=== PATIENT | female | born 1930 | race Caucasian/White ===

== ENCOUNTER → 2017-01-02 | Outpatient (CLI) | payer MEDICARE, OTHER ==
[~2017-01-02] MED LIST: AMLO10TA2 PO; FAMO-79 PO; HYDR-3138 PO; LEVO750T26 PO; LOSA50TA6; METO25TA35 PO; METR500T PO; ONDA4TAB10 PO
== END | disposition home or self-care (01) ==
LOC: CFH 10:44
PROVIDERS: ATTEND Internal Medicine Hematology & Oncology
DX: C34.90 Malignant neoplasm of unspecified part of unspecified bronchus or lung (principal); I70.0 Atherosclerosis of aorta; J84.10 Pulmonary fibrosis, unspecified; J98.4 Other disorders of lung; J47.9 Bronchiectasis, uncomplicated; J90 Pleural effusion, not elsewhere classified; R91.8 Other nonspecific abnormal finding of lung field; I51.7 Cardiomegaly; I31.3 Pericardial effusion (noninflammatory); I25.10 Atherosclerotic heart disease of native coronary artery without angina pectoris; R18.8 Other ascites; M85.88 Other specified disorders of bone density and structure, other site; M48.54XA Collapsed vertebra, not elsewhere classified, thoracic region, initial encounter for fracture; M95.4 Acquired deformity of chest and rib; Z90.49 Acquired absence of other specified parts of digestive tract
CPT/HCPCS: 71250

== ENCOUNTER → 2017-01-19 | Outpatient (CLI) | payer MEDICARE, OTHER | END | disposition home or self-care (01) | LOC: PETCFH 11:29 | PROVIDERS: ATTEND Internal Medicine Hematology & Oncology | DX: C34.90 Malignant neoplasm of unspecified part of unspecified bronchus or lung (principal); J90 Pleural effusion, not elsewhere classified | CPT/HCPCS: 78815; A9552 ==

== ENCOUNTER 2017-03-17 09:51 | Emergency (ER) | payer MEDICARE, OTHER ==
[~2017-03-17] VITALS: Ht 162.6 cm; Wt 65.0 kg
[~2017-03-17 09:51] MED LIST changes: -HYDR-3138 PO; +HYDR-3237 PO
[2017-03-17] MEDS ORDERED: SODIUM CHLORIDE 0.9% 1,000 ML IV ONE (10:14)
[2017-03-17] MEDS ORDERED: methylPREDNISolone SOD SUCC 125 MG/2 ML IVPush ONE (10:30)
[2017-03-17] MEDS ORDERED: DIPHENHYDRAMINE 50 MG/ML, 1ML IVPush ONE (10:30)
[2017-03-17] MEDS ORDERED: SODIUM CHLORIDE FLUSH 10ML SYR IVF ONE (10:30)
[2017-03-17 10:53] LABS: HEMATOCRIT 40.7 % (34.6-47.8); HEMOGLOBIN 13.5 g/dL (11.7-16.4); WHITE BLOOD COUNT 6.7 x10^3/uL (3.4-10)
[2017-03-17] MEDS ORDERED: DIPHENHYDRAMINE 50 MG/ML, 1ML ONE (11:00)
[2017-03-17] MEDS ORDERED: methylPREDNISolone SOD SUCC 125 MG/2 ML ONE (11:00)
[2017-03-17 11:06] LABS: BLOOD UREA NITROGEN 9 mg/dL (7-18)
[2017-03-17 11:09] LABS: ASPARTATE AMINO TRANSFERASE 16 U/L (15-37)
[2017-03-17] MEDS ORDERED: OMNIPAQUE 350 MG/ML, 100ML BOTTLE ONE (11:54)
[2017-03-17 14:52] VITALS: BP 136/68
== END 2017-03-17 14:56 | disposition home or self-care (01) ==
LOC: ED 12:19
DX: N30.90 Cystitis, unspecified without hematuria (principal); I10 Essential (primary) hypertension; F17.200 Nicotine dependence, unspecified, uncomplicated; Z90.49 Acquired absence of other specified parts of digestive tract; Z85.118 Personal history of other malignant neoplasm of bronchus and lung; Z91.041 Radiographic dye allergy status; Z88.0 Allergy status to penicillin
CPT/HCPCS: 36415; 74177; 80053; 81001; 82550; 83690; 85025; 87086; 93005; 96361; 96374; 96375; 99285; J1200; J2930; J7030; Q9967

== ENCOUNTER → 2017-04-02 | Outpatient (CLI) | payer MEDICARE, OTHER | END | disposition home or self-care (01) | LOC: CFH 15:33 | PROVIDERS: ATTEND Internal Medicine Hematology & Oncology | DX: M79.89 Other specified soft tissue disorders (principal) ==

== ENCOUNTER → 2017-04-29 | Outpatient (CLI) | payer MEDICARE, OTHER ==
[~2017-04-29] MED LIST changes: +OMNIPAQUE 350 MG/ML, 100ML BOTTLE ONE
== END | disposition home or self-care (01) ==
LOC: RAD 13:34
PROVIDERS: ATTEND Internal Medicine Hematology & Oncology
DX: R18.8 Other ascites (principal); C34.90 Malignant neoplasm of unspecified part of unspecified bronchus or lung; R91.8 Other nonspecific abnormal finding of lung field; J92.9 Pleural plaque without asbestos; M48.54XA Collapsed vertebra, not elsewhere classified, thoracic region, initial encounter for fracture; K22.8 Other specified diseases of esophagus; M51.37 Other intervertebral disc degeneration, lumbosacral region
CPT/HCPCS: 71260; 74177; Q9967

== ENCOUNTER 2017-05-08 09:00 | Inpatient (IN) | payer MEDICARE, OTHER ==
[~2017-05-08] VITALS: Ht 162.6 cm; Wt 74.5 kg
[~2017-05-08 09:00] MED LIST changes: -OMNIPAQUE 350 MG/ML, 100ML BOTTLE ONE
[2017-05-08] MEDS ORDERED: PANT20TA3 PO (09:16)
[2017-05-08] MEDS ORDERED: NIVO40VI IV (09:28)
[2017-05-08] MEDS ORDERED: SODIUM CHLORIDE 0.9% 1,000ML IVBOLUS ONE (09:30)
[2017-05-08] MEDS ORDERED: MORPHINE SULFATE 4 MG/ML, 1ML IVPush PRN (09:30)
[2017-05-08] MEDS ORDERED: SODIUM CHLORIDE FLUSH 10ML SYR IVF ONE (09:30)
[2017-05-08] MEDS ORDERED: ONDANSETRON 2MG/ML, 2ML IVPush ONE (09:30)
[2017-05-08 10:12] LABS: HEMATOCRIT 41.4 % (34.6-47.8); HEMOGLOBIN 13.5 g/dL (11.7-16.4); WHITE BLOOD COUNT 10.5 x10^3/uL (3.4-10)
[2017-05-08 10:24] LABS: BLOOD UREA NITROGEN 9 mg/dL (7-18)
[2017-05-08 11:02] LABS: IS PT STATUS REG ER OR PRE ER? YES
[2017-05-08] MEDS ORDERED: morphine SULFATE 10 MG/ML, 1ML ONE ×2 (11:23→11:27)
[2017-05-08] MEDS ORDERED: ONDANSETRON 2MG/ML, 2ML ONE ×3 (11:23→23:41)
[2017-05-08] MEDS ORDERED: morphine SULFATE 10 MG/ML, 1ML IVPush PRN (12:00)
[2017-05-08] MEDS ORDERED: BISACODYL 10 MG SUPP PR PRN (12:00)
[2017-05-08] MEDS ORDERED: TRAZODONE 50MG TABLET PO PRN (12:00)
[2017-05-08] MEDS ORDERED: LABETALOL 5MG/ML, 20ML IVPush PRN (12:00)
[2017-05-08] MEDS ORDERED: ENOXAPARIN 40 MG/0.4 ML SQ SCH (12:00)
[2017-05-08] MEDS ORDERED: ONDANSETRON 2MG/ML, 2ML IVPush PRN ×2 (12:00→23:00)
[2017-05-08] MEDS ORDERED: hydrALAzine 20 MG/ML, 1ML IVPush PRN (12:00)
[2017-05-08 12:41] LABS: IS PT STATUS REG ER OR PRE ER? YES
[2017-05-08 13:16] LABS: C-REACTIVE PROTEIN, QUANT 3.3 mg/dL (0.02-0.49)
[2017-05-08 13:45] VITALS: BP 116/73
[2017-05-08] MEDS: NS + 20MEQ KCL 1,000 ML IV SCH (14:52)
[2017-05-08] MEDS: LEVOFLOXACIN/PMX 500MG/100ML 100 ML IV SCH (14:52)
[2017-05-08 15:25] LABS: PATH.CAST-FLAG NOT PRESENT; SPERM-FLAG NOT PRESENT; SRC-FLAG NOT PRESENT; XTAL-FLAG NOT PRESENT; YLC-FLAG NOT PRESENT
[2017-05-08 20:24] VITALS: BP 108/67
[2017-05-08] MEDS ORDERED: CEFAZOLIN 1,000 MG ONE (22:24)
[2017-05-08] MEDS ORDERED: ROCURONIUM 10 MG/ML ONE ×2 (22:24→22:28)
[2017-05-08] MEDS ORDERED: PROPOFOL 10 MG/ML, 20ML ONE (22:24)
[2017-05-08] MEDS ORDERED: FENTANYL PF 250 MCG/5ML ONE (22:24)
[2017-05-08] MEDS ORDERED: ACETAMINOPHEN 325 MG TABLET PO PRN (23:00)
[2017-05-08] MEDS ORDERED: PROMETHAZINE 25 MG/ML, 1ML IV PRN (23:00)
[2017-05-08] MEDS ORDERED: OXYcodone 5 MG/5 ML ORAL.SOL UDC PO PRN (23:00)
[2017-05-08] MEDS ORDERED: hydrALAzine 20 MG/ML, 1ML IV PRN (23:00)
[2017-05-08] MEDS ORDERED: ALBUTEROL SULFATE 2.5 MG/3 ML NPPB PRN (23:00)
[2017-05-08] MEDS ORDERED: METOPROLOL 1 MG/ML, 5ML IV PRN (23:00)
[2017-05-08] MEDS ORDERED: EPHEDRINE 50 MG/ML, 1ML IVPush PRN (23:00)
[2017-05-08] MEDS ORDERED: LABETALOL 5MG/ML, 20ML IV PRN (23:00)
[2017-05-08] MEDS ORDERED: HYDROmorphone 1 MG/ML, 1ML IV PRN (23:00)
[2017-05-08] MEDS ORDERED: DEXAMETHASONE 4 MG/ML, 1ML ONE (23:41)
[2017-05-08] MEDS ORDERED: TRANEXAMIC ACID 100 MG/ML, 10ML ONE (23:56)
[2017-05-09] MEDS ORDERED: NEOSTIGMINE 1 MG/ML, 10ML ONE ×2 (00:22)
[2017-05-09] MEDS ORDERED: GLYCOPYRROLATE 0.4 MG/2 ML, 2ML ONE (00:23)
[2017-05-09] MEDS ORDERED: OXYcodone 5 MG/5 ML ORAL.SOL UDC ONE (01:19)
[2017-05-09] MEDS ORDERED: ACETAMINOPHEN 650 MG/20.3 ML UDC ONE (01:19)
[2017-05-09] MEDS ORDERED: FENTANYL PF 100 MCG/2ML ONE (01:19)
[2017-05-09] MEDS: FENTANYL PF 100 MCG/2ML IV PRN ×2 (01:21→01:27)
[2017-05-09 02:38] VITALS: BP 82/55
[2017-05-09 03:23] VITALS: BP 88/56
[2017-05-09 04:34] VITALS: BP 94/60
[2017-05-09] MEDS: NS + 20MEQ KCL 1,000 ML IV SCH ×2 (05:00→15:00)
[2017-05-09 06:01] LABS: HEMOGLOBIN 11.1 g/dL (11.7-16.4); WHITE BLOOD COUNT 14.5 x10^3/uL (3.4-10)
[2017-05-09 06:04] LABS: BLOOD UREA NITROGEN 12 mg/dL (7-18)
[2017-05-09 07:30] VITALS: BP 93/58
[2017-05-09] MEDS: CEFAZOLIN PMX 1GM/50ML 50 ML IV SCH ×2 (07:51→16:17)
[2017-05-09] MEDS: ENOXAPARIN 40 MG/0.4 ML SQ SCH (07:51)
[2017-05-09] MEDS: PANTOPRAZOLE 40 MG IV IVPush SCH (07:51)
[2017-05-09] MEDS: HYDROcodone/APAP 5/325 TABLET PO PRN ×2 (07:52→22:26)
[2017-05-09] MEDS: LEVOFLOXACIN/PMX 500MG/100ML 100 ML IV SCH (14:00)
[2017-05-09 14:30] VITALS: BP 96/58
[2017-05-09] MEDS ORDERED: NS + 20MEQ KCL 1,000 ML IV SCH (16:00)
[2017-05-09 19:18] LABS: BLOOD UREA NITROGEN 16 mg/dL (7-18)
[2017-05-09 19:50] VITALS: BP 94/59
[2017-05-10] MEDS: CEFAZOLIN PMX 1GM/50ML 50 ML IV SCH (00:52)
[2017-05-10 00:53] VITALS: BP 104/65
[2017-05-10] MEDS: NS + 20MEQ KCL 1,000 ML IV SCH ×3 (00:53→15:20)
[2017-05-10 05:41] LABS: HEMATOCRIT 28.9 % (34.6-47.8); HEMOGLOBIN 9.5 g/dL (11.7-16.4); WHITE BLOOD COUNT 9.3 x10^3/uL (3.4-10)
[2017-05-10 05:50] LABS: BLOOD UREA NITROGEN 16 mg/dL (7-18)
[2017-05-10] MEDS: ENOXAPARIN 40 MG/0.4 ML SQ SCH (09:06)
[2017-05-10] MEDS: PANTOPRAZOLE 40 MG IV IVPush SCH (09:06)
[2017-05-10 09:07] VITALS: BP 91/50
[2017-05-10] MEDS: HYDROcodone/APAP 5/325 TABLET PO PRN ×3 (09:53→20:24)
[2017-05-10 13:43] VITALS: BP 96/61
[2017-05-10] MEDS ORDERED: NS + 20MEQ KCL 1,000 ML IV SCH ×2 (14:30→16:00)
[2017-05-10] MEDS: LEVOFLOXACIN/PMX 500MG/100ML 100 ML IV SCH (15:35)
[2017-05-10 20:09] VITALS: BP 109/68
[2017-05-11 04:26] VITALS: BP 112/70
[2017-05-11] MEDS: HYDROcodone/APAP 5/325 TABLET PO PRN ×3 (04:38→14:41)
[2017-05-11 05:38] LABS: HEMATOCRIT 29.3 % (34.6-47.8); HEMOGLOBIN 9.7 g/dL (11.7-16.4)
[2017-05-11 05:54] LABS: BLOOD UREA NITROGEN 12 mg/dL (7-18)
[2017-05-11 09:10] VITALS: BP 115/88
[2017-05-11] MEDS: PANTOPRAZOLE 40 MG IV IVPush SCH (09:12)
[2017-05-11] MEDS: ENOXAPARIN 40 MG/0.4 ML SQ SCH (09:13)
[2017-05-11] MEDS ORDERED: BISA10SU65 PR (10:29)
[2017-05-11] MEDS ORDERED: HYDR-3240 PO (10:30)
[2017-05-11] MEDS ORDERED: LEVO500T47 PO (10:30)
[2017-05-11] MEDS ORDERED: FUROSEMIDE 40 MG/4 ML IV ONE (10:30)
[2017-05-11] MEDS ORDERED: ENOX40SY4 SQ (10:30)
[2017-05-11] MEDS ORDERED: TRAZ50TA18 PO (10:30)
[2017-05-11] MEDS: LEVOFLOXACIN/PMX 500MG/100ML 100 ML IV SCH (14:00)
== END 2017-05-11 16:05 | DRG 956 ==
LOC: ED 09:09 → EDIP 10:40 → 5SO 13:16
PROVIDERS: ADMIT Internal Medicine; ATTEND Internal Medicine
PROC: 0SRS0J9 Replacement of Left Hip Joint, Femoral Surface with Synthetic Substitute, Cemented, Open Approach (ICD-10-PCS; principal; 2017-05-08 21:30)
DX: S72.032A Displaced midcervical fracture of left femur, initial encounter for closed fracture (principal); S32.9XXA Fracture of unspecified parts of lumbosacral spine and pelvis, initial encounter for closed fracture; J18.9 Pneumonia, unspecified organism; J90 Pleural effusion, not elsewhere classified; E87.70 Fluid overload, unspecified; Z99.81 Dependence on supplemental oxygen; C34.90 Malignant neoplasm of unspecified part of unspecified bronchus or lung; W01.0XXA Fall on same level from slipping, tripping and stumbling without subsequent striking against object, initial encounter; R33.9 Retention of urine, unspecified; I10 Essential (primary) hypertension; K21.9 Gastro-esophageal reflux disease without esophagitis; Z90.49 Acquired absence of other specified parts of digestive tract; Z88.0 Allergy status to penicillin; Z91.041 Radiographic dye allergy status; Y93.89 Activity, other specified; Y92.098 Other place in other non-institutional residence as the place of occurrence of the external cause; Y99.8 Other external cause status
CPT/HCPCS: 36415; 51702; 71010; 72170; 80048; 81001; 82040; 84439; 84443; 84484; 85025; 85610; 85651; 85730; 86140; 87040; 87086; 93005; 96374; 96375; J0690; J1100; J1650; J1940; J1956; J2405; J2704; J2710; J3010; J3480; C9113; J7030

== ENCOUNTER 2017-05-29 11:47 | Inpatient (IN) | payer MEDICARE, OTHER ==
[~2017-05-29] VITALS: Ht 162.6 cm; Wt 70.4 kg
[~2017-05-29 11:47] MED LIST changes: +BISA10SU65 PR; +ENOX40SY4 SQ; +HYDR-3240 PO; +LEVO500T47 PO; +NIVO40VI IV; +PANT20TA3 PO; +TRAZ50TA18 PO
[2017-05-29] MEDS ORDERED: SODIUM CHLORIDE 0.9% 1,000 ML IV ONE (11:52)
[2017-05-29] MEDS ORDERED: SODIUM CHLORIDE 0.9% 1,000ML IVBOLUS ONE (12:00)
[2017-05-29 12:30] LABS: HEMATOCRIT 34.7 % (34.6-47.8); HEMOGLOBIN 11.2 g/dL (11.7-16.4); WHITE BLOOD COUNT 8.7 x10^3/uL (3.4-10)
[2017-05-29] MEDS ORDERED: DIPHENHYDRAMINE 50 MG/ML, 1ML ONE (12:30)
[2017-05-29] MEDS ORDERED: DIPHENHYDRAMINE 50 MG/ML, 1ML IVPush ONE (12:30)
[2017-05-29 12:43] LABS: ASPARTATE AMINO TRANSFERASE 23 U/L (15-37); BLOOD UREA NITROGEN 11 mg/dL (7-18)
[2017-05-29 12:49] LABS: IS PT STATUS REG ER OR PRE ER? YES
[2017-05-29] MEDS ORDERED: OMNIPAQUE 350 MG/ML, 100ML BOTTLE ONE (13:18)
[2017-05-29] MEDS ORDERED: HYDROcodone/APAP 5/325 TABLET PO PRN (15:00)
[2017-05-29] MEDS ORDERED: ENALAPRILAT 1.25 MG/ML, 2ML IVPush PRN (15:00)
[2017-05-29] MEDS ORDERED: ONDANSETRON ODT 4 MG PO PRN (15:00)
[2017-05-29] MEDS ORDERED: TRAZODONE 50MG TABLET PO PRN (15:00)
[2017-05-29] MEDS ORDERED: DOCUSATE 100 MG CAPSULE PO PRN (15:00)
[2017-05-29] MEDS ORDERED: BISACODYL 10 MG SUPP PR PRN (15:00)
[2017-05-29] MEDS ORDERED: ONDANSETRON 2MG/ML, 2ML IVPush PRN (15:00)
[2017-05-29] MEDS: SODIUM CHLORIDE 0.9% 1,000 ML IV SCH ×2 (16:04→20:44)
[2017-05-29 16:10] VITALS: BP 111/62
[2017-05-29] MEDS: ENOXAPARIN 40 MG/0.4 ML SQ SCH (16:40)
[2017-05-29] MEDS: LORazepam 1MG TABLET PO PRN (18:33)
[2017-05-29] MEDS: ACETAMINOPHEN 325 MG TABLET PO PRN (18:49)
[2017-05-29] MEDS: ALBUTEROL/IPRATROPIUM 2.5MG/0.5MG, 3 ML NPPB PRN (18:55)
[2017-05-29 19:12] VITALS: BP 88/49
[2017-05-29 20:09] VITALS: BP 76/40
[2017-05-29] MEDS: CLINDAMYCIN PMX 600MG/50ML 50 ML IV SCH (20:20)
[2017-05-29] MEDS ORDERED: SODIUM CHLORIDE 0.9%, 500ML IVBOLUS ONE (21:00)
[2017-05-29 21:11] VITALS: BP 75/41
[2017-05-29 22:05] VITALS: BP 81/44
[2017-05-29 23:30] VITALS: BP 84/40
[2017-05-30] MEDS ORDERED: methylPREDNISolone SOD SUCC 40 MG/ML IV ONE (00:30)
[2017-05-30 00:58] LABS: HEMATOCRIT 30.3 % (34.6-47.8); HEMOGLOBIN 9.9 g/dL (11.7-16.4); WHITE BLOOD COUNT 8.9 x10^3/uL (3.4-10)
[2017-05-30 01:08] LABS: BLOOD UREA NITROGEN 12 mg/dL (7-18)
[2017-05-30 01:16] VITALS: BP 91/43
[2017-05-30] MEDS: CLINDAMYCIN PMX 600MG/50ML 50 ML IV SCH ×3 (03:27→19:55)
[2017-05-30] MEDS: SODIUM CHLORIDE 0.9% 1,000 ML IV SCH ×3 (03:35→23:55)
[2017-05-30 07:45] VITALS: BP 85/50
[2017-05-30] MEDS: SENNA/DOCUSATE TABLET PO SCH (09:00)
[2017-05-30] MEDS: PANTOPRAZOLE 20MG TABLET PO SCH (09:00)
[2017-05-30 14:15] VITALS: BP 95/60
[2017-05-30] MEDS ORDERED: SODIUM CHLORIDE 0.9% 1,000 ML IV SCH (14:59)
[2017-05-30] MEDS: ENOXAPARIN 40 MG/0.4 ML SQ SCH (15:29)
[2017-05-30 18:51] VITALS: BP 99/55
[2017-05-30 19:41] VITALS: BP 95/54
[2017-05-30] MEDS: ACETAMINOPHEN 325 MG TABLET PO PRN (19:55)
[2017-05-30] MEDS: ALBUTEROL/IPRATROPIUM 2.5MG/0.5MG, 3 ML NPPB PRN (22:27)
[2017-05-31 03:40] VITALS: BP 89/49
[2017-05-31 03:42] VITALS: BP 92/48
[2017-05-31] MEDS: CLINDAMYCIN PMX 600MG/50ML 50 ML IV SCH (03:43)
[2017-05-31 05:00] LABS: HEMATOCRIT 28.7 % (34.6-47.8); HEMOGLOBIN 9.4 g/dL (11.7-16.4); WHITE BLOOD COUNT 7.6 x10^3/uL (3.4-10)
[2017-05-31 05:11] LABS: BLOOD UREA NITROGEN 20 mg/dL (7-18)
[2017-05-31 05:58] VITALS: BP 104/58
[2017-05-31 06:51] VITALS: BP 99/62
[2017-05-31] MEDS: PANTOPRAZOLE 20MG TABLET PO SCH (09:15)
[2017-05-31] MEDS: SENNA/DOCUSATE TABLET PO SCH (09:15)
[2017-05-31] MEDS ORDERED: POTASSIUM CHLORIDE 20 MEQ TAB.ER.PRT PO ONE (10:00)
[2017-05-31] MEDS: LEVOFLOXACIN 750 MG TABLET PO SCH (11:16)
[2017-05-31 12:17] VITALS: BP 128/72
[2017-05-31] MEDS: ENOXAPARIN 40 MG/0.4 ML SQ SCH (15:47)
[2017-05-31] MEDS: ACETAMINOPHEN 325 MG TABLET PO PRN (16:04)
[2017-05-31 19:30] VITALS: BP 117/74
[2017-05-31] MEDS ORDERED: BISACODYL 10 MG SUPP PR PRN (21:00)
[2017-05-31] MEDS ORDERED: ENALAPRILAT 1.25 MG/ML, 2ML IVPush PRN (21:00)
[2017-05-31] MEDS ORDERED: HYDROcodone/APAP 5/325 TABLET PO PRN (21:00)
[2017-05-31] MEDS ORDERED: ONDANSETRON 2MG/ML, 2ML IVPush PRN (21:00)
[2017-05-31] MEDS ORDERED: ONDANSETRON ODT 4 MG PO PRN (21:00)
[2017-05-31] MEDS ORDERED: DOCUSATE 100 MG CAPSULE PO PRN (21:00)
[2017-05-31] MEDS: ALBUTEROL/IPRATROPIUM 2.5MG/0.5MG, 3 ML NPPB PRN (21:08)
[2017-05-31] MEDS: LORazepam 1MG TABLET PO PRN (21:46)
[2017-06-01 03:52] VITALS: BP 106/65
[2017-06-01 06:46] VITALS: BP 107/63
[2017-06-01] MEDS: SENNA/DOCUSATE TABLET PO SCH (09:00)
[2017-06-01] MEDS: POTASSIUM CHLORIDE 20 MEQ TAB.ER.PRT PO SCH ×2 (09:03→17:40)
[2017-06-01] MEDS: PANTOPRAZOLE 20MG TABLET PO SCH (09:03)
[2017-06-01] MEDS: LEVOFLOXACIN 750 MG TABLET PO SCH (09:04)
[2017-06-01] MEDS: ALBUTEROL/IPRATROPIUM 2.5MG/0.5MG, 3 ML NPPB PRN (09:40)
[2017-06-01] MEDS ORDERED: FUROSEMIDE 20 MG/2 ML IV SCH (12:30)
[2017-06-01] MEDS: ALBUTEROL/IPRATROPIUM 2.5MG/0.5MG, 3 ML NPPB SCH ×3 (12:50→21:00)
[2017-06-01] MEDS: ACETAMINOPHEN 325 MG TABLET PO PRN (13:14)
[2017-06-01 13:35] VITALS: BP 115/62
[2017-06-01] MEDS: ALBUMIN HUMAN 25% 50 ML IV SCH ×2 (14:49→23:09)
[2017-06-01] MEDS: ENOXAPARIN 40 MG/0.4 ML SQ SCH (15:55)
[2017-06-01] MEDS ORDERED: DIPHENHYDRAMINE 50 MG/ML, 1ML ONE (16:05)
[2017-06-01] MEDS ORDERED: DIPHENHYDRAMINE 50 MG/ML, 1ML IVPush ONE (16:30)
[2017-06-01] MEDS: FUROSEMIDE 20 MG/2 ML IV SCH (16:30)
[2017-06-01 19:56] VITALS: BP 118/65
[2017-06-01] MEDS: LORazepam 1MG TABLET PO PRN (21:26)
[2017-06-02 04:38] LABS: HEMATOCRIT 30.9 % (34.6-47.8); HEMOGLOBIN 10.1 g/dL (11.7-16.4); WHITE BLOOD COUNT 5.4 x10^3/uL (3.4-10)
[2017-06-02 04:49] LABS: BLOOD UREA NITROGEN 9 mg/dL (7-18)
[2017-06-02] MEDS: ALBUTEROL/IPRATROPIUM 2.5MG/0.5MG, 3 ML NPPB SCH ×4 (06:15→19:40)
[2017-06-02] MEDS: PANTOPRAZOLE 20MG TABLET PO SCH (08:56)
[2017-06-02] MEDS: POTASSIUM CHLORIDE 20 MEQ TAB.ER.PRT PO SCH ×2 (08:56→17:12)
[2017-06-02] MEDS: SENNA/DOCUSATE TABLET PO SCH (08:56)
[2017-06-02] MEDS: ALBUMIN HUMAN 25% 50 ML IV SCH ×2 (08:57→20:58)
[2017-06-02] MEDS: AZTREONAM 2 GM in DEXTROSE 5% 100 ML IV SCH ×3 (10:11→23:56)
[2017-06-02] MEDS: FUROSEMIDE 20 MG/2 ML IV SCH ×2 (10:11→21:30)
[2017-06-02] MEDS ORDERED: ALBUMIN HUMAN 25% 100 ML IV ONE (12:00)
[2017-06-02] MEDS ORDERED: FUROSEMIDE 20 MG/2 ML IV ONE (13:00)
[2017-06-02] MEDS: LINEZOLID PMX 600MG/300ML 300 ML IV SCH (13:36)
[2017-06-02] MEDS: ACETAMINOPHEN 325 MG TABLET PO PRN (15:32)
[2017-06-02] MEDS: ENOXAPARIN 40 MG/0.4 ML SQ SCH (15:35)
[2017-06-02] MEDS ORDERED: POTASSIUM CHLORIDE 20 MEQ TAB.ER.PRT PO ONE (20:30)
[2017-06-02] MEDS: LORazepam 1MG TABLET PO PRN (22:29)
[2017-06-03] MEDS: LINEZOLID PMX 600MG/300ML 300 ML IV SCH ×2 (00:38→12:58)
[2017-06-03 05:06] LABS: BLOOD UREA NITROGEN 8 mg/dL (7-18)
[2017-06-03] MEDS: ALBUTEROL/IPRATROPIUM 2.5MG/0.5MG, 3 ML NPPB SCH ×4 (07:00→21:36)
[2017-06-03] MEDS: SENNA/DOCUSATE TABLET PO SCH (09:00)
[2017-06-03] MEDS: POTASSIUM CHLORIDE 20 MEQ TAB.ER.PRT PO SCH ×2 (09:36→16:08)
[2017-06-03] MEDS: ACETAMINOPHEN 325 MG TABLET PO PRN ×2 (09:36→21:24)
[2017-06-03] MEDS: PANTOPRAZOLE 20MG TABLET PO SCH (09:37)
[2017-06-03] MEDS: ALBUMIN HUMAN 25% 50 ML IV SCH ×2 (10:45→21:20)
[2017-06-03] MEDS: FUROSEMIDE 20 MG/2 ML IV SCH ×2 (11:49→22:59)
[2017-06-03] MEDS: AZTREONAM 2 GM in DEXTROSE 5% 100 ML IV SCH ×2 (11:49→19:36)
[2017-06-03] MEDS: ENOXAPARIN 40 MG/0.4 ML SQ SCH (16:06)
[2017-06-03] MEDS: LORazepam 1MG TABLET PO PRN (20:08)
[2017-06-04] MEDS: LINEZOLID PMX 600MG/300ML 300 ML IV SCH ×2 (01:28→12:36)
[2017-06-04] MEDS: AZTREONAM 2 GM in DEXTROSE 5% 100 ML IV SCH ×3 (04:00→20:23)
[2017-06-04] MEDS: LORazepam 1MG TABLET PO PRN (05:27)
[2017-06-04] MEDS ORDERED: ALBUTEROL/IPRATROPIUM 2.5MG/0.5MG, 3 ML NPPB PRN (05:30)
[2017-06-04] MEDS: ALBUTEROL/IPRATROPIUM 2.5MG/0.5MG, 3 ML NPPB SCH ×5 (06:00→23:00)
[2017-06-04 07:58] LABS: HEMATOCRIT 30.4 % (34.6-47.8); HEMOGLOBIN 9.8 g/dL (11.7-16.4); WHITE BLOOD COUNT 8.7 x10^3/uL (3.4-10)
[2017-06-04 08:11] LABS: BLOOD UREA NITROGEN 9 mg/dL (7-18)
[2017-06-04 08:14] LABS: ASPARTATE AMINO TRANSFERASE 16 U/L (15-37)
[2017-06-04] MEDS: SENNA/DOCUSATE TABLET PO SCH (09:00)
[2017-06-04] MEDS ORDERED: MAGNESIUM SULFATE PMX 4GM/100M 100 ML IV ONE (09:30)
[2017-06-04] MEDS ORDERED: SODIUM BICARBONATE 4.2%, 5ML NPPB SCH (10:30)
[2017-06-04] MEDS: PANTOPRAZOLE 20MG TABLET PO SCH (10:57)
[2017-06-04] MEDS: ALBUMIN HUMAN 25% 50 ML IV SCH ×2 (11:06→21:28)
[2017-06-04] MEDS: FUROSEMIDE 20 MG/2 ML IV SCH ×2 (11:24→22:36)
[2017-06-04] MEDS: ACETYLCYSTEINE 20%, 4ML NPPB SCH ×2 (14:53→19:55)
[2017-06-04] MEDS: DRONABINOL 5 MG CAPSULE PO SCH ×2 (15:29→21:29)
[2017-06-04] MEDS: ENOXAPARIN 40 MG/0.4 ML SQ SCH (15:30)
[2017-06-04] MEDS: MICAFUNGIN 100 MG in SODIUM CHLORIDE 0.9% 100 ML IV SCH (17:47)
[2017-06-04] MEDS: POTASSIUM CHLORIDE 20 MEQ TAB.ER.PRT PO SCH (17:47)
[2017-06-04] MEDS ORDERED: ALBUTEROL SULFATE 2.5 MG/3 ML ONE (19:49)
[2017-06-05] MEDS: LINEZOLID PMX 600MG/300ML 300 ML IV SCH ×2 (01:17→13:03)
[2017-06-05] MEDS: ALBUTEROL/IPRATROPIUM 2.5MG/0.5MG, 3 ML NPPB SCH ×6 (02:38→22:06)
[2017-06-05] MEDS: AZTREONAM 2 GM in DEXTROSE 5% 100 ML IV SCH ×3 (04:18→20:16)
[2017-06-05 05:00] LABS: BLOOD UREA NITROGEN 9 mg/dL (7-18)
[2017-06-05] MEDS ORDERED: ALBUTEROL SULFATE 2.5 MG/3 ML NPPB SCH (07:00)
[2017-06-05] MEDS: ACETYLCYSTEINE 20%, 4ML NPPB SCH ×4 (07:15→20:00)
[2017-06-05] MEDS ORDERED: PANTOPROZOLE 40MG TABLET PO SCH (08:00)
[2017-06-05] MEDS: FUROSEMIDE 20 MG/2 ML IV SCH ×2 (08:10→16:14)
[2017-06-05] MEDS: POTASSIUM CHLORIDE 20 MEQ TAB.ER.PRT PO SCH (08:48)
[2017-06-05] MEDS: DRONABINOL 5 MG CAPSULE PO SCH ×2 (08:49→21:19)
[2017-06-05] MEDS: SENNA/DOCUSATE TABLET PO SCH (08:50)
[2017-06-05] MEDS: ALBUMIN HUMAN 25% 50 ML IV SCH ×2 (09:00→21:18)
[2017-06-05] MEDS: FAMOTIDINE 20 MG TABLET PO SCH (11:17)
[2017-06-05] MEDS: ENOXAPARIN 40 MG/0.4 ML SQ SCH (16:12)
[2017-06-05] MEDS: MICAFUNGIN 100 MG in SODIUM CHLORIDE 0.9% 100 ML IV SCH (17:47)
[2017-06-05] MEDS: LORazepam 1MG TABLET PO PRN (23:56)
[2017-06-05] MEDS: ACETAMINOPHEN 325 MG TABLET PO PRN (23:56)
[2017-06-06] MEDS: LINEZOLID PMX 600MG/300ML 300 ML IV SCH ×2 (01:04→13:13)
[2017-06-06] MEDS: LORazepam 2 MG/ML, 1ML IVPush PRN ×2 (01:04→19:29)
[2017-06-06] MEDS: ALBUTEROL/IPRATROPIUM 2.5MG/0.5MG, 3 ML NPPB SCH ×6 (01:46→22:00)
[2017-06-06] MEDS: AZTREONAM 2 GM in DEXTROSE 5% 100 ML IV SCH ×3 (04:30→19:30)
[2017-06-06 04:44] LABS: ABG COLLECTION SITE RIGHT BRACHIAL
[2017-06-06 05:07] LABS: HEMATOCRIT 27.6 % (34.6-47.8); HEMOGLOBIN 8.9 g/dL (11.7-16.4); WHITE BLOOD COUNT 6.8 x10^3/uL (3.4-10)
[2017-06-06 05:25] LABS: BLOOD UREA NITROGEN 12 mg/dL (7-18)
[2017-06-06 05:30] LABS: ASPARTATE AMINO TRANSFERASE 17 U/L (15-37)
[2017-06-06] MEDS: SENNA/DOCUSATE TABLET PO SCH (09:00)
[2017-06-06] MEDS: DRONABINOL 5 MG CAPSULE PO SCH ×2 (09:00→21:13)
[2017-06-06] MEDS: ALBUMIN HUMAN 25% 50 ML IV SCH ×2 (09:52→21:13)
[2017-06-06] MEDS: FAMOTIDINE 20 MG TABLET PO SCH (11:49)
[2017-06-06] MEDS: FUROSEMIDE 20 MG/2 ML IV SCH ×2 (12:04→21:44)
[2017-06-06] MEDS: ENOXAPARIN 40 MG/0.4 ML SQ SCH (16:57)
[2017-06-06] MEDS: MICAFUNGIN 100 MG in SODIUM CHLORIDE 0.9% 100 ML IV SCH (16:58)
[2017-06-07] MEDS: LINEZOLID PMX 600MG/300ML 300 ML IV SCH ×2 (01:08→12:45)
[2017-06-07] MEDS: ALBUTEROL/IPRATROPIUM 2.5MG/0.5MG, 3 ML NPPB SCH ×6 (03:00→23:03)
[2017-06-07] MEDS: LORazepam 2 MG/ML, 1ML IVPush PRN ×2 (03:51→20:02)
[2017-06-07] MEDS ORDERED: FILTER 0.22 MICRON IV PRN (05:00)
[2017-06-07] MEDS ORDERED: AMIODARONE 150 MG in DEXTROSE 5% 100 ML IV ONE (05:00)
[2017-06-07] MEDS: AMIODARONE 900 MG in DEXTROSE 5% 482 ML IV PRN (05:04)
[2017-06-07] MEDS: AZTREONAM 2 GM in DEXTROSE 5% 100 ML IV SCH ×3 (05:14→20:06)
[2017-06-07 06:32] LABS: ABG COLLECTION SITE RIGHT RADIAL; COLLATERAL CIRCULATION TESTING NORMAL
[2017-06-07 06:45] LABS: ASPARTATE AMINO TRANSFERASE 18 U/L (15-37); BLOOD UREA NITROGEN 18 mg/dL (7-18)
[2017-06-07 07:06] LABS: HEMATOCRIT 28.9 % (34.6-47.8); HEMOGLOBIN 9.4 g/dL (11.7-16.4); WHITE BLOOD COUNT 7.8 x10^3/uL (3.4-10)
[2017-06-07] MEDS: SENNA/DOCUSATE TABLET PO SCH (09:00)
[2017-06-07] MEDS: DRONABINOL 5 MG CAPSULE PO SCH ×2 (09:00→21:00)
[2017-06-07] MEDS: FUROSEMIDE 40 MG/4 ML IV SCH ×2 (09:46→22:18)
[2017-06-07] MEDS: ALBUMIN HUMAN 25% 50 ML IV SCH ×2 (09:54→20:55)
[2017-06-07] MEDS: FAMOTIDINE 20 MG/2 ML IV SCH (11:14)
[2017-06-07] MEDS: ENOXAPARIN 40 MG/0.4 ML SQ SCH (15:36)
[2017-06-07] MEDS: MICAFUNGIN 100 MG in SODIUM CHLORIDE 0.9% 100 ML IV SCH (17:42)
[2017-06-08] MEDS: LINEZOLID PMX 600MG/300ML 300 ML IV SCH ×2 (00:57→14:24)
[2017-06-08] MEDS: ALBUTEROL/IPRATROPIUM 2.5MG/0.5MG, 3 ML NPPB SCH ×5 (02:40→22:55)
[2017-06-08] MEDS: AMIODARONE 900 MG in DEXTROSE 5% 482 ML IV PRN (02:52)
[2017-06-08] MEDS: AZTREONAM 2 GM in DEXTROSE 5% 100 ML IV SCH ×3 (04:10→19:42)
[2017-06-08 04:43] LABS: HEMATOCRIT 28.6 % (34.6-47.8); HEMOGLOBIN 9.4 g/dL (11.7-16.4); WHITE BLOOD COUNT 8.2 x10^3/uL (3.4-10)
[2017-06-08 04:56] LABS: ASPARTATE AMINO TRANSFERASE 17 U/L (15-37); BLOOD UREA NITROGEN 19 mg/dL (7-18)
[2017-06-08] MEDS ORDERED: POTASSIUM CHLORIDE 40 MEQ in SODIUM CHLORIDE 0.9% 500 ML IV ONE (06:30)
[2017-06-08] MEDS: SENNA/DOCUSATE TABLET PO SCH (08:25)
[2017-06-08] MEDS: DRONABINOL 5 MG CAPSULE PO SCH ×2 (09:00→20:55)
[2017-06-08] MEDS: ALBUMIN HUMAN 25% 50 ML IV SCH ×2 (09:22→22:44)
[2017-06-08] MEDS: FAMOTIDINE 20 MG/2 ML IV SCH (11:22)
[2017-06-08] MEDS: FUROSEMIDE 40 MG/4 ML IV SCH ×2 (11:23→23:25)
[2017-06-08] MEDS: LORazepam 2 MG/ML, 1ML IVPush PRN ×3 (11:23→20:06)
[2017-06-08] MEDS: ENOXAPARIN 40 MG/0.4 ML SQ SCH (15:15)
[2017-06-08] MEDS: MICAFUNGIN 100 MG in SODIUM CHLORIDE 0.9% 100 ML IV SCH (17:44)
[2017-06-09] MEDS: LORazepam 2 MG/ML, 1ML IVPush PRN ×5 (00:18→19:56)
[2017-06-09] MEDS: LINEZOLID PMX 600MG/300ML 300 ML IV SCH ×2 (01:05→12:29)
[2017-06-09] MEDS: ALBUTEROL/IPRATROPIUM 2.5MG/0.5MG, 3 ML NPPB SCH ×4 (03:23→13:34)
[2017-06-09] MEDS: AZTREONAM 2 GM in DEXTROSE 5% 100 ML IV SCH ×3 (03:57→19:59)
[2017-06-09 04:21] LABS: HEMATOCRIT 29.7 % (34.6-47.8); HEMOGLOBIN 9.6 g/dL (11.7-16.4); WHITE BLOOD COUNT 9.1 x10^3/uL (3.4-10)
[2017-06-09 04:33] LABS: BLOOD UREA NITROGEN 18 mg/dL (7-18)
[2017-06-09 04:36] LABS: ASPARTATE AMINO TRANSFERASE 16 U/L (15-37)
[2017-06-09] MEDS: AMIODARONE 900 MG in DEXTROSE 5% 482 ML IV PRN (08:23)
[2017-06-09] MEDS: ALBUMIN HUMAN 25% 50 ML IV SCH ×2 (08:23→20:59)
[2017-06-09] MEDS: SENNA/DOCUSATE TABLET PO SCH (08:23)
[2017-06-09] MEDS: DRONABINOL 5 MG CAPSULE PO SCH ×2 (08:23→21:00)
[2017-06-09] MEDS: FUROSEMIDE 40 MG/4 ML IV SCH ×2 (10:15→22:08)
[2017-06-09] MEDS: FAMOTIDINE 20 MG/2 ML IV SCH (10:15)
[2017-06-09] MEDS ORDERED: POTASSIUM CHLORIDE 40 MEQ in SODIUM CHLORIDE 0.9% 500 ML IV ONE (10:30)
[2017-06-09] MEDS ORDERED: TPN PER PHARMACY MC PRN (12:00)
[2017-06-09] MEDS: FENTANYL PF 100 MCG/2ML IVPush PRN ×3 (12:49→22:08)
[2017-06-09] MEDS ORDERED: FILTER, DISP 1.2 MICRON FOR TPN/PVN IV PRN (14:00)
[2017-06-09] MEDS: ENOXAPARIN 40 MG/0.4 ML SQ SCH (14:11)
[2017-06-09] MEDS ORDERED: FAT EMULSIONS IV SCH (17:00)
[2017-06-09] MEDS ORDERED: AMINO ACID 10% IV SCH (17:00)
[2017-06-09] MEDS ORDERED: DEXTROSE 70% IV SCH (17:00)
[2017-06-09] MEDS ORDERED: DEXTROSE 10% 500 ML IV PRN (17:00)
[2017-06-09] MEDS ORDERED: DEXTROSE 50%, 50ML SYRINGE IVPush PRN (17:00)
[2017-06-09] MEDS ORDERED: [UNRECOGNIZED DRUG - OTHER] IV SCH (17:00)
[2017-06-09] MEDS: MICAFUNGIN 100 MG in SODIUM CHLORIDE 0.9% 100 ML IV SCH (18:11)
[2017-06-09] MEDS: INSULIN REGULAR LOW DOSE Q6H X 48HRS SQ-INSULIN SCH (22:25)
[2017-06-10] MEDS: LINEZOLID PMX 600MG/300ML 300 ML IV SCH ×2 (01:05→12:54)
[2017-06-10] MEDS: LORazepam 2 MG/ML, 1ML IVPush PRN ×5 (01:14→22:29)
[2017-06-10] MEDS: INSULIN REGULAR LOW DOSE Q6H X 48HRS SQ-INSULIN SCH ×2 (04:07→08:33)
[2017-06-10] MEDS: AZTREONAM 2 GM in DEXTROSE 5% 100 ML IV SCH ×3 (04:14→19:42)
[2017-06-10 04:28] LABS: HEMATOCRIT 29.9 % (34.6-47.8); HEMOGLOBIN 9.6 g/dL (11.7-16.4); WHITE BLOOD COUNT 10.8 x10^3/uL (3.4-10)
[2017-06-10 04:33] LABS: ASPARTATE AMINO TRANSFERASE 17 U/L (15-37); BLOOD UREA NITROGEN 18 mg/dL (7-18)
[2017-06-10] MEDS: FENTANYL PF 100 MCG/2ML IVPush PRN ×2 (05:19→20:53)
[2017-06-10] MEDS: ALBUTEROL/IPRATROPIUM 2.5MG/0.5MG, 3 ML NPPB SCH ×5 (06:27→22:30)
[2017-06-10] MEDS: ALBUMIN HUMAN 25% 50 ML IV SCH ×2 (07:54→20:29)
[2017-06-10] MEDS: DRONABINOL 5 MG CAPSULE PO SCH ×2 (07:55→20:09)
[2017-06-10] MEDS: SENNA/DOCUSATE TABLET PO SCH (07:55)
[2017-06-10] MEDS: methylPREDNISolone SOD SUCC 125 MG/2 ML IVPush SCH ×3 (08:38→20:29)
[2017-06-10] MEDS: FUROSEMIDE 40 MG/4 ML IV SCH ×2 (08:41→21:56)
[2017-06-10] MEDS: AMIODARONE 900 MG in DEXTROSE 5% 482 ML IV PRN (15:19)
[2017-06-10] MEDS: ENOXAPARIN 40 MG/0.4 ML SQ SCH (15:19)
[2017-06-10] MEDS: INSULIN REGULAR, HUMAN 100 UNITS/ML, 3ML MEDIUM DOSE SS SQ-INSULIN SCH ×2 (15:21→20:38)
[2017-06-10] MEDS: MICAFUNGIN 100 MG in SODIUM CHLORIDE 0.9% 100 ML IV SCH (16:51)
[2017-06-10] MEDS ORDERED: AMINO ACID 10% IV SCH (17:00)
[2017-06-10] MEDS ORDERED: FILTER, DISP 1.2 MICRON FOR TPN/PVN IV PRN (17:00)
[2017-06-10] MEDS ORDERED: DEXTROSE 70% IV SCH (17:00)
[2017-06-10] MEDS ORDERED: [UNRECOGNIZED DRUG - OTHER] IV SCH (17:00)
[2017-06-10] MEDS ORDERED: FAT EMULSIONS IV SCH (17:00)
[2017-06-11] MEDS: FENTANYL PF 100 MCG/2ML IVPush PRN ×4 (00:33→14:12)
[2017-06-11] MEDS: LINEZOLID PMX 600MG/300ML 300 ML IV SCH ×2 (00:33→14:11)
[2017-06-11] MEDS: ALBUTEROL/IPRATROPIUM 2.5MG/0.5MG, 3 ML NPPB SCH ×4 (02:15→14:45)
[2017-06-11] MEDS: LORazepam 2 MG/ML, 1ML IVPush PRN ×4 (02:23→16:41)
[2017-06-11] MEDS: methylPREDNISolone SOD SUCC 125 MG/2 ML IVPush SCH ×3 (02:23→14:47)
[2017-06-11] MEDS: INSULIN REGULAR, HUMAN 100 UNITS/ML, 3ML MEDIUM DOSE SS SQ-INSULIN SCH ×3 (02:29→16:11)
[2017-06-11] MEDS: AZTREONAM 2 GM in DEXTROSE 5% 100 ML IV SCH ×2 (03:57→11:58)
[2017-06-11 05:09] LABS: HEMATOCRIT 28.2 % (34.6-47.8); WHITE BLOOD COUNT 9.1 x10^3/uL (3.4-10)
[2017-06-11 05:20] LABS: BLOOD UREA NITROGEN 24 mg/dL (7-18)
[2017-06-11] MEDS ORDERED: INSULIN REGULAR, HUMAN 100 UNITS/ML, 3ML MEDIUM DOSE SS SQ-INSULIN SCH (09:00)
[2017-06-11] MEDS: DRONABINOL 5 MG CAPSULE PO SCH (09:00)
[2017-06-11] MEDS: SENNA/DOCUSATE TABLET PO SCH (09:00)
[2017-06-11] MEDS: ALBUMIN HUMAN 25% 50 ML IV SCH (09:08)
[2017-06-11] MEDS: FUROSEMIDE 40 MG/4 ML IV SCH (10:13)
[2017-06-11] MEDS: ENOXAPARIN 40 MG/0.4 ML SQ SCH (16:09)
[2017-06-11] MEDS ORDERED: [UNRECOGNIZED DRUG - OTHER] IV SCH ×2 (17:00→18:00)
[2017-06-11] MEDS ORDERED: DEXTROSE 70% IV SCH ×2 (17:00→18:00)
[2017-06-11] MEDS ORDERED: FAT EMULSIONS IV SCH ×2 (17:00→18:00)
[2017-06-11] MEDS ORDERED: AMINO ACID 10% IV SCH ×2 (17:00→18:00)
[2017-06-11] MEDS ORDERED: FILTER, DISP 1.2 MICRON FOR TPN/PVN IV PRN (17:00)
[2017-06-11] MEDS ORDERED: LORazepam INTENSOL 2 MG/ML SL PRN (17:30)
[2017-06-11] MEDS ORDERED: morphine SULFATE 125 MG in SODIUM CHLORIDE 0.9% 237.5 ML IV PRN (18:00)
[2017-06-11] MEDS ORDERED: LORazepam 2 MG/ML, 1ML ONE (18:23)
[2017-06-11] MEDS ORDERED: INSULIN REGULAR LOW DOSE QDAY SQ-INSULIN SCH (21:00)
[2017-06-12] MEDS ORDERED: INSULIN REGULAR, HUMAN 100 UNITS/ML, 3ML MEDIUM DOSE SS SQ-INSULIN SCH (09:00)
== END 2017-06-11 18:45 | disposition expired | DRG 291 ==
LOC: ED 13:23 → EDIP 14:03 → 3NW 15:15 → CCU 06-01 20:21 → CSU 06-03 01:50 → CCU 06-04 16:11
PROVIDERS: ADMIT Hospitalist; ATTEND Hospitalist
PROC: 0T9B70Z Drainage of Bladder with Drainage Device, Via Natural or Artificial Opening (ICD-10-PCS; 2017-06-02)
PROC: 5A09557 Assistance with Respiratory Ventilation, Greater than 96 Consecutive Hours, Continuous Positive Airway Pressure (ICD-10-PCS; principal; 2017-06-06)
DX: I11.0 Hypertensive heart disease with heart failure (principal); J96.21 Acute and chronic respiratory failure with hypoxia; E43 Unspecified severe protein-calorie malnutrition; J15.9 Unspecified bacterial pneumonia; C79.51 Secondary malignant neoplasm of bone; R18.8 Other ascites; I95.9 Hypotension, unspecified; E87.1 Hypo-osmolality and hyponatremia; Z99.81 Dependence on supplemental oxygen; I50.33 Acute on chronic diastolic (congestive) heart failure; I35.1 Nonrheumatic aortic (valve) insufficiency; E78.1 Pure hyperglyceridemia; F41.9 Anxiety disorder, unspecified; K21.9 Gastro-esophageal reflux disease without esophagitis; Z96.642 Presence of left artificial hip joint; Z51.5 Encounter for palliative care; Z66 Do not resuscitate; Z85.118 Personal history of other malignant neoplasm of bronchus and lung; Z87.891 Personal history of nicotine dependence; Z90.49 Acquired absence of other specified parts of digestive tract; Z92.21 Personal history of antineoplastic chemotherapy
CPT/HCPCS: 36415; 36600; 71010; 72193; 76770; 78582; 80048; 80053; 81003; 82803; 82805; 82962; 83605; 83735; 83880; 84075; 84100; 84132; 84134; 84145; 84439; 84443; 84478; 84484; 85025; 85379; 85610; 85730; 87040; 87081; 93005; 93306; 94640; 94660; 96374; J0610; J1650; J1815; J1940; J2020; J2248; J2270; J3010; J3475; J3480; J7608; J7613; J7620; P9047; Q0162; Q0167; Q9967; A9540; A9558; C9898; J0282; J1200; J2060; J2920; J2930; J7030; J7040; J7060; S0028